=== PATIENT | female | born 1995 | race Asian ===

== ENCOUNTER 2023-07-26 14:11 | Outpatient (AMB) | payer OTHER, SELFPAY ==
[2023-07-26 14:18] VITALS: BP 100/60; PULSE 90; BMI 18.8
--- NOTE | 2023-07-26 14:18 | A.OFFVIS_ITS ---
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 Vault Service Mechanic Required: No Accompanied by: Mother Allergies No Known Allergies Allergy (Verified 07/26/23 14:21) Medication List - Last Reconciled 07/26/23 by Korey Lainez MD albuterol sulfate 90 mcg/actuation (Ventolin HFA) inhalation ferrous sulfate 325 mg PO DAILY fluticasone propionate 220 mcg/actuation (Flovent HFA) inhalation levothyroxine 112 mcg PO DAILY tiotropium bromide (Spiriva with HandiHaler) 1 cap inhalation DAILY HPI HPI Comments History of Present Illness Details 28-year-old female who is here for atria l fibrillation. She was in the hospital with headache, chest pains and visual changes end of June 2023. She suffers from migraines. She also has Pina's thyroiditis and was only with heart seen but ran out couple of months before presentation to the hospital. She also has menorrhagia and chronic anemia requiring supplemental iron. She said she was anemic in the hospital and was given a blood transfusion and was put back on her levothyroxine. During her hospitalization she had EKG performed in 1 of the EKG she was thought to be in atrial fibrillation. She is denying any palpitations. She has chronic dyspnea and fatigue due to anemia due to menorrhagia. She has never seen OBGYN for this indication. During hospitalization she was also diagnosed with mild emphysema. She was started on Spiriva. Etiology is unclear. EKG in the office is showing sinus rhythm right now. One of his uncle had PFO/ASD and underwent surgery and had some heart enlargement as per mother who accompanied Ms. Pena. [facility] Social History (Updated 07/26/23 @ 14:27 by Patricia Mcdonough MA) Alcohol intake: never Patient Tobacco Use Status: Never used Tobacco Review of Systems Const Reports chills, Reports fatigue, Reports fever(s), Reports frequent falls, Reports weakness, Reports weight gain and Reports weight loss ENT Reports dizziness Card Reports chest pain, Reports leg edema, Reports lightheadedness, Reports palpitations, Reports dyspnea, Reports dyspnea on exertion and Reports orthopnea Resp Reports cough, Reports dyspnea and Reports dyspnea on exertion GI Reports bloating and Reports change in bowel habits Musc Reports muscle weakness, Reports numbness and Reports tingling Neuro Reports dizziness, Reports frequent falls, Reports numbness, Reports tingling and Reports weakness Endo Reports fatigue and Reports palpitations Physical Exam Vital Signs: Last Vital Signs Pulse 90 07/26/23 14:18 BP 100/60 07/26/23 14:18 BMI result Body Mass Index 18.8 GENERAL APPEARANCE: in no acute distress, pleasant. NECK: no carotid bruit, no jugular venous distention. SKIN: no suspicious lesions, warm and dry. HEART: no murmurs, regular rate and rhythm. LUNGS: clear to auscultation bilaterally. ABDOMEN: soft, nontender. EXTREMITIES: no edema. PERIPHERAL PULSES: equal. NEUROLOGIC: No gross deficits, AAO X 3 Office Procedures EKG Details: Sinus rhythm 90 beats per minute, normal axis, normal ECG, QTC 406 milliseconds. [id number], Complete Assessment & Plan Assessment & Plan (1) PAF (paroxysmal atrial fibrillation): Code(s): I48.0 - Paroxysmal atrial fibrillation Plan 28-year-old female who is here for episode of paroxysmal atrial fibrillation. I will review her EKGs in [facility]. EKG in the office is showing sinus rhythm. She has Pina's thyroiditis and currently has hypothyroidism and is on levothyroxine. Most of her symptoms of chest tightness, shortness of breath and fatigue are due to underlying anemia and iron deficiency. She should consider further workup with oil recovery unit operator. I will arrange an echocardiogram to rule out any structural heart issues. Currently I do not think she needs a cloth wire weaver but we will decide further as echocardiography comes back. If I see cardiomyopathy then I will consider cardiac event monitor because her risk of recurrent atrial fibrillation is higher in that case and that could be 1 potential cause for cardiomyopathy too. Thank you for allowing me to participate in the care of your patient. Please feel free to contact me if you have any questions. Orders: Orders CA echo transthoracic complete Today I48.0 - Paroxysmal atrial fibrillation Coding Level of Care Code Procedure Only Diagnoses PAF (paroxysmal atrial fibrillation) I48.0 CPT Codes EKG - CPT: 46513-[id number], Complete ([id number])
== END 2023-07-26 15:02 | disposition home or self-care (01) ==
PROVIDERS: PCP Internal Medicine; Visit Provider Internal Medicine Cardiovascular Disease
DX: I48.0 Paroxysmal atrial fibrillation (principal)
CPT/HCPCS: 93010; 99204

== ENCOUNTER → 2023-07-26 14:11 | Outpatient (BNVA) | payer OTHER, SELFPAY | PROVIDERS: PCP Internal Medicine; Visit Provider Internal Medicine Cardiovascular Disease | DX: I48.0 Paroxysmal atrial fibrillation (principal) | CPT/HCPCS: 93005; 99202 ==

== ENCOUNTER → 2023-08-17 09:08 | Outpatient (REF) | payer OTHER, SELFPAY ==
--- NOTE | 2023-08-17 09:13 | CA_ITS ---
Transthoracic Echocardiogram Patient (Last, First, Middle): Marah Pena, Gender: Female Date of : 1995 Age: 28 Procedure Date: 08/17/2023 Procedure Type: Transthoracic Echocardiogram Location: OP Height: 144.78 cm Weight: 39.01 kg BSA: 1.26 m2 Heart Rate: bpm BP: 100 / 60 mmHg Sap Business Intelligence Consultant: TO Referring MD: Korey Baldwin MD Forming Acid Dumper: Korey Baldwin MD Symptoms: I48.0 - Paroxysmal atrial fibrillation Study Quality: Fair Conclusions: - Normal left ventricular size, thickness, systolic function, and wall motion. The visually estimated ejection fraction is between 55-60%. Diastolic function is normal for age. - Normal right ventricular cavity size and systolic function. - There is a small pericardial effusion. There are no definitive echocardiographic findings of tamponade physiology. Findings Procedure Information The patient declines contrast. Left Ventricle Normal left ventricular size, thickness, systolic function, and wall motion. The visually estimated ejection fraction is between 55-60%. Diastolic function is normal for age. Right Ventricle Normal right ventricular cavity size and systolic function. Atria The left atrium is normal in size. Aortic Valve Normal aortic valve structure and function. There is no aortic valve stenosis. There is no aortic valve regurgitation. Mitral Valve Normal mitral valve structure and function. There is no mitral valve regurgitation. There is no mitral valve stenosis. Pulmonic Valve The pulmonic valve is normal. There is trace pulmonic valve regurgitation. Tricuspid Valve Normal tricuspid valve structure. There is no tricuspid valve regurgitation. Tricuspid regurgitation envelope is inadequate for calculation of right ventricular systolic pressure. Normal right atrial pressure. Great Vessels All visible segments of the aorta are normal in size. The visualized portions of the pulmonary artery and branches are normal. Venous The inferior vena cava is normal in size and collapses greater than 50% with inspiration. Pericardium/Pleural There is a small pericardial effusion. There are no definitive echocardiographic findings of tamponade physiology. Prior Study Comparison No prior study available for comparison. Measurements 2D Linear Measurements IVSd: 0.76 0.6-0.9/0.6-1.0 cm LVIDd: 3.80 3.9-5.3/4.2-5.9 cm LVIDd Index: 3.02 2.4-3.2/2.2-3.1 cm/m2 LVIDs: 2.66 2.0-3.6 cm LVPWd: 0.74 0.7-1.1 cm LA Diam: 2.20 2.7-3.8/3.0-4.0 cm LAIDs Index: 1.75 1.5-2.3 cm/m2 LV Mass: 97.41 67-162/88-224 g LV Mass Index: 77.31 43-95/49-115 g/m2 LVOT Diam: 1.80 3.0+(-)1.3 cm 2D Systolic Function EF 4C: 54.50 >55% Mitral Valve MV Pk E: 0.90 MV PK A: 0.44 MV Decel Time: 153.00 E/A: 2.10 E'Lateral: 10.30 E'Medial: 7.18 E/E' Med: 12.50 E/E' Lat: 8.70 PHT: 45.00 MVA PHT: 4.89 Decel Bleckley: 5.89 Aortic Valve AoV Pk Art: 1.00 AoV Mn Art: 0.66 AoV VTI: 0.20 AoV Pk Grad: 4.00 Aov Mn Grad: 2.00 GREGORIO Cont.VTI: 1.78 LVOT LVOT Pk Art: 0.70 LVOT Mn Art: 0.45 LVOT VTI: 0.14 LVOT Pk Grad: 2.00 LVOT Mn Grad: 1.00 LVOT Diam: 1.80 LVOT Area: 2.54 Diastolic Function MV Pk E: 0.90 MV Pk A: 0.44 E/A: 2.10 E'Medial: 7.18 E/E' Med: 12.50 E' Laterial: 10.30 E/E' Lat: 8.70 Right Ventricle TAPSE (mm): 17.50 TVS' Art: 9.79 Tricuspid Valve RA Press: 3.00 Great Vessels Aorta Sinus of Valsalva: 2.72 2.0-3.5 cm Ao Asc: 2.10 2.1-3.4 cm Updated in Other Vendor System with Status of Final Korey Baldwin MD electronically signed on 08/19/2023 9:48:42 PM with status of Final
== END ==
LOC: HO.CARD 09:08
PROVIDERS: PCP Internal Medicine; Visit Provider Internal Medicine Cardiovascular Disease
DX: I48.0 Paroxysmal atrial fibrillation (principal)
CPT/HCPCS: 93306

== ENCOUNTER → 2023-08-17 09:13 | Outpatient (BNV) | payer OTHER, SELFPAY | PROVIDERS: PCP Internal Medicine; Visit Provider Internal Medicine Cardiovascular Disease | DX: I48.0 Paroxysmal atrial fibrillation (principal) | CPT/HCPCS: 93306 ==

== ENCOUNTER 2023-11-30 09:07 | Outpatient (AMB) | payer OTHER, SELFPAY ==
--- NOTE | 2023-11-30 09:10 | MHC.OFFVIS ---
Vital Signs 11/30/23 09:11 Height 4 ft 9 in Weight 89 lb 8.123 oz BMI 19.4 BP 100/62 Blood Pressure Location Lt brachial Position Sitting Pulse 73 Pulse Source Pulse Oximeter Intake Visit Reasons: 3 mth f/up echo Home Care Chaplain Required: No Allergies No Known Allergies Allergy (Verified 11/30/23 09:12) Medication List - Last Reconciled 11/30/23 by Janiya Devi, BULLDOZER/LOADER/COMPACTOR/SCRAPER-C albuterol sulfate 90 mcg/actuation (Ventolin HFA) inhalation ferrous sulfate 325 mg PO DAILY fluticasone propionate 220 mcg/actuation (Flovent HFA) inhalation levothyroxine 125 mcg PO DAILY tiotropium bromide (Spiriva with HandiHaler) 1 cap inhalation DAILY HPI HPI 3 mth f/up echo: Details: Marah is a 28-year-old female with past medical history of Pina's thyroiditis, emphysema, iron deficiency anemia, episode of paroxysmal atrial fibrillation with slow ventricular response while in [facility] for anemia, migraine, 06/2023, who had echocardiogram 08/2023 showing normal EF and small pericardial effusion. Today she reports that she has been feeling better overall. She says her breathing is improved from what it had been over the winter. She has not had any bleeding issues or significant anemia recently. No chest discomfort, palpitations, lightheadedness, presyncope, syncope, falls. 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 She tells me she does only light physical activities. Taking meds as directed. [facility] Social History Alcohol intake: never Patient Tobacco Use Status: Never used Tobacco Review of Systems ENT Denies dizziness Card Denies chest pain, Denies chest pain at rest, Denies chest pain with activity, Denies rapid heart rate, Denies pedal edema, Denies edema, Denies leg edema, Denies lightheadedness, Denies palpitations, Reports dyspnea, Denies dyspnea on exertion and Denies orthopnea Resp Denies cough, Reports dyspnea and Denies dyspnea on exertion GI Denies hematochezia and Denies change in stool character Musc Denies abnormal gait, Denies limited range of motion, Denies muscle cramps, Denies muscle weakness, Denies numbness, Denies radiating pain into limb, Denies stiffness and Denies tingling Neuro Denies abnormal gait, Denies dizziness, Denies numbness and Denies tingling Endo Denies palpitations Physical Exam Vital Signs: Last Vital Signs Pulse 73 11/30/23 09:11 BP 100/62 11/30/23 09:11 BMI result Body Mass Index 19.4 Const Other: petite built General: cooperative, healthy appearing, comfortable and no acute distress Orientation/consciousness: patient oriented x3 Neck Neck: Yes normal visual inspection and Yes no JVD Resp Effort & Inspection: normal respiratory effort Auscultation: clear to auscultation bilaterally, no crackles, no rales, no rhonchi and no wheezes Cardio Jugular venous distension: no JVD Rate: regular rate Rhythm: regular rhythm Heart sounds: S1 normal heart sound present, S2 normal heart sound present, no murmurs and no rubs Neuro General: patient oriented x3 Extrem General: Yes normal to inspection and No no pedal edema Psych Appearance: grossly normal Mental Status: mental status grossly normal Speech and movement: Normal speech and movement present Assessment & Plan Assessment & Plan (1) PAF (paroxysmal atrial fibrillation): Code(s): I48.0 - Paroxysmal atrial fibrillation Category: Medical Plan: Episode of paroxysmal atrial fibrillation with slow ventricular response seen while at [facility] Emergency room for noncardiac reasons. She did have significant anemia at that time requiring transfusion. She has not had or required recurrent transfusions since then. She has not noticed any heart palpitations. Pulse is regular on examination today, no concern for recurrent AFib. An echocardiogram was done 08/17/2023 showing EF 55-60%, normal RV, small pericardial effusion. She has no symptoms that suggest possible worsening of the pericardial effusion. Will update a limited echo to reassess, plan to call her with results. Her AFib episode may have been isolated in the setting of her medical condition at that time. Will have her check a Holter monitor prior to her next visit. Cardiology follow-up 6 months, sooner if needed (2) Shortness of breath: Code(s): R06.02 - Shortness of breath Category: Medical Plan: Patient has known history of mild emphysema. She does follow with pulmonology. She tells me breathing is stable at this time. (3) Abnormal echocardiogram findings without diagnosis: Code(s): R93.1 - Abnormal findings on diagnostic imaging of heart and coronary circulation Category: Medical Plan: Small pericardial effusion noted on echo. Plan Time spent on chart review, documentation, interview and assessment Orders: Orders CA echo limited Today R93.1 - Abnormal findings on diagnostic imaging of heart and coronary circulation ECG 3 day holter monitor 05/01/24 I48.0 - Paroxysmal atrial fibrillation Coding Level of Care Code Est Pt Level 3 (30776) Diagnoses PAF (paroxysmal atrial fibrillation) I48.0 Shortness of breath R06.02 Abnormal echocardiogram findings without diagnosis R93.1 Time Spent (min) 24
[2023-11-30 09:11] VITALS: BP 100/62; PULSE 73; BMI 19.4
== END 2023-11-30 09:45 | disposition home or self-care (01) ==
PROVIDERS: PCP Internal Medicine; Visit Provider Nurse Practitioner Family
DX: I48.0 Paroxysmal atrial fibrillation (principal); R06.02 Shortness of breath; R93.1 Abnormal findings on diagnostic imaging of heart and coronary circulation
CPT/HCPCS: 99213

== ENCOUNTER → 2023-11-30 09:07 | Outpatient (BNVA) | payer OTHER, SELFPAY | PROVIDERS: PCP Internal Medicine; Visit Provider Nurse Practitioner Family | DX: I48.0 Paroxysmal atrial fibrillation (principal); R06.02 Shortness of breath; R93.1 Abnormal findings on diagnostic imaging of heart and coronary circulation | CPT/HCPCS: 99212 ==

== ENCOUNTER → 2024-01-03 09:43 | Outpatient (REF) | payer OTHER, SELFPAY ==
--- NOTE | 2024-01-03 09:46 | CA_ITS ---
Transthoracic Echocardiogram Patient (Last, First, Middle): Marah Pena, Gender: Female Date of : 1995 Age: 28 Procedure Date: 01/03/2024 Procedure Type: Transthoracic Echocardiogram Location: OP Height: 144.78 cm Weight: 40.37 kg BSA: 1.27 m2 Heart Rate: 69 bpm BP: 100 / 62 mmHg Change House Attendant: SB Referring MD: Janiya Devi DUMPLING MACHINE OPERATORAlan Supervisor Process Testing: Richard Greene MD Symptoms: R93.1 - Abnormal findings on diagnostic imaging of heart and coronary ci... Study Quality: Adequate/Limited ordered to eval pericardial effus ECG Rhythm: Sinus Conclusions: - Trivial pericardial effusion noted Findings Pericardium/Pleural There is a trivial pericardial effusion. There are no definitive echocardiographic findings of tamponade physiology. Prior Study Comparison No significant change compared to prior study dated: 08/17/2023. Measurements 2D Linear Measurements LVIDd: 4.00 3.9-5.3/4.2-5.9 cm LVIDd Index: 3.15 2.4-3.2/2.2-3.1 cm/m2 LVIDs: 2.77 2.0-3.6 cm LVOT Diam: 1.70 3.0+(-)1.3 cm Mitral Valve MV Pk E: 0.70 MV PK A: 0.42 MV Decel Time: 158.00 E/A: 1.70 E'Lateral: 9.14 E'Medial: 8.05 E/E' Med: 8.70 E/E' Lat: 7.60 PHT: 46.00 MVA PHT: 4.78 Decel Jay: 4.41 LVOT LVOT Pk Art: 0.72 LVOT Mn Art: 0.53 LVOT VTI: 0.13 LVOT Pk Grad: 2.00 LVOT Mn Grad: 1.00 LVOT Diam: 1.70 LVOT Area: 2.27 Diastolic Function MV Pk E: 0.70 MV Pk A: 0.42 E/A: 1.70 E'Medial: 8.05 E/E' Med: 8.70 E' Laterial: 9.14 E/E' Lat: 7.60 Tricuspid Valve RA Press: 3.00 Updated in Other Vendor System with Status of Final Richard Greene MD electronically signed on 01/03/2024 2:07:40 PM with status of Final
== END ==
LOC: HO.CARD 09:43
PROVIDERS: PCP Internal Medicine; Visit Provider Nurse Practitioner Family
DX: R93.1 Abnormal findings on diagnostic imaging of heart and coronary circulation (principal)
CPT/HCPCS: 93308

== ENCOUNTER → 2024-01-03 09:46 | Outpatient (BNV) | payer OTHER, SELFPAY | PROVIDERS: PCP Internal Medicine; Visit Provider Internal Medicine Cardiovascular Disease | DX: I31.39 Other pericardial effusion (noninflammatory) (principal); R93.1 Abnormal findings on diagnostic imaging of heart and coronary circulation | CPT/HCPCS: 93308 ==

== ENCOUNTER → 2024-04-18 09:42 | Outpatient (REF) | payer OTHER, SELFPAY ==
--- NOTE | 2024-04-18 09:47 | HM_ITS ---
* Total monitoring time 3 days. * Underlying rhythm is sinus with an average rate of 83/Min. * No significant supraventricular or ventricular ectopy. * No tachyarrhythmias. * No significant pauses or AV blocks. * No patient markers or diary events. MTDD
== END ==
LOC: HO.CARD 09:42
PROVIDERS: PCP Internal Medicine; Visit Provider Nurse Practitioner Family
DX: I48.0 Paroxysmal atrial fibrillation (principal)
CPT/HCPCS: 93242

== ENCOUNTER → 2024-04-18 09:47 | Outpatient (BNV) | payer OTHER, SELFPAY | PROVIDERS: PCP Internal Medicine; Visit Provider Internal Medicine | DX: R00.0 Tachycardia, unspecified (principal) | CPT/HCPCS: 93244 ==